=== PATIENT | male | born 1985 | race Caucasian/White ===

== ENCOUNTER → 2021-12-26 | Outpatient (CLI) | payer OTHER ==
[~2021-12-26] MED LIST: AMOX875 PO; ANTOXYBENA RIGHTEAR; CEPH500 PO; CRUTCH4 XX; CYCL10 PO; DOCU100 PO; HYDACE5 PO; Keflex500 MG PO; NAPR500 PO; OXYACE5T PO; Percocet 5-3251 EACH PO; RXHYDACE PO; SULTRIDS PO
== END | disposition home or self-care (01) ==
LOC: LAB 13:34 → LAB SHORT 13:34
DX: L02.412 Cutaneous abscess of left axilla (principal)
CPT/HCPCS: 87070; 87075; 87077; 87147; 87186; 87205

== ENCOUNTER 2022-05-14 21:00 | Emergency (ER) | payer OTHER ==
[~2022-05-14] VITALS: Ht 182.9 cm; Wt 81.7 kg
[2022-05-15] MEDS ORDERED: Vibramycin100 MG PO (01:45)
[2022-05-15] MEDS ORDERED: Percocet 5-3251 EACH PO (01:45)
[2022-05-15] MEDS ORDERED: CEPH500 PO (01:45)
== END 2022-05-15 02:01 | disposition home or self-care (01) ==
LOC: ER 21:00
DX: L03.012 Cellulitis of left finger (principal); F17.210 Nicotine dependence, cigarettes, uncomplicated
CPT/HCPCS: 10060; 96372; 99282-25; A9270; J0690

== ENCOUNTER 2025-05-18 23:25 | Emergency (ER) | payer OTHER ==
[~2025-05-18] VITALS: Ht 182.9 cm; Wt 90.7 kg
[~2025-05-18 23:25] MED LIST changes: +Vibramycin100 MG PO
[2025-05-18 23:39] VITALS: BP 141/98
[2025-05-19] MEDS ORDERED: IBUP600 PO (01:05)
[2025-05-19] MEDS ORDERED: AMOCLA875 PO (01:05)
[2025-05-19] MEDS ORDERED: ACET500 PO (01:05)
== END 2025-05-19 01:30 | disposition home or self-care (01) ==
LOC: ER 23:25
DX: S02.2XXA Fracture of nasal bones, initial encounter for closed fracture (principal); Z79.2 Long term (current) use of antibiotics; Z79.899 Other long term (current) drug therapy; F17.210 Nicotine dependence, cigarettes, uncomplicated; V19.9XXA Pedal cyclist (driver) (passenger) injured in unspecified traffic accident, initial encounter
CPT/HCPCS: 70450; 70486; 99284-25; A9270